=== PATIENT | female | born 1960 | race Caucasian/White ===

== ENCOUNTER → 2017-05-23 | Outpatient (CLI) | payer BC, OTHER ==
[~2017-05-23] MED LIST: GLIPIZIDE10 M1 PO; JANUVIA100 MG PO; LANTUS (UNITS)1 UNIT SQ; METFORMIN HCL500 MG PO; SIMVASTATIN80 MG; ZESTRIL,PRINIVI20 MG PO
[2017-05-23 08:24] LABS: BASE EXCESS 2.4 mEq/L (-3 to +3); BICARBONATE 27.2 mEq/L (22-26); CARBOXY HGB 2.1 % (0-5); COMMENTS - BLOOD GASES NAC+ PRIOR TO PFT; METHEMOGLOBIN 0.8 % (0-1.5); PCO2 42 mm Hg (35-45); PO2 67 mm Hg (80-100); SITE LR; pH 7.42 (7.35-7.45)
== END | disposition home or self-care (01) ==
LOC: RES 07:55
PROVIDERS: Internal Medicine Pulmonary Disease
DX: J44.9 Chronic obstructive pulmonary disease, unspecified (principal)
CPT/HCPCS: 36600; 82803; 94060; 94726; 94729